=== PATIENT | female | born 1945 | race Caucasian/White ===

== ENCOUNTER 2017-07-04 07:21 | Outpatient (CLI) | payer OTHER | END 2017-07-04 07:29 | disposition home or self-care (01) | LOC: NUCLEAR 07:21 | DX: R07.89 Other chest pain (principal); E11.9 Type 2 diabetes mellitus without complications; I10 Essential (primary) hypertension; R94.31 Abnormal electrocardiogram [ECG] [EKG] | CPT/HCPCS: 78452; 93017; A9500; J0153 ==

== ENCOUNTER 2018-10-14 18:37 | Emergency (ER) | payer OTHER ==
[~2018-10-14] VITALS: Ht 172.7 cm; Wt 86.2 kg
[2018-10-14] MEDS ORDERED: FORTAMET500 MG (19:46)
[2018-10-14] MEDS ORDERED: SYNTHROID88 MCG (19:47)
[2018-10-14] MEDS ORDERED: PANTOPRAZOLE SO40 MG (19:47)
[2018-10-15] MEDS ORDERED: PYRIDIUM DS200 MG PO (01:33)
[2018-10-15] MEDS ORDERED: CEFUROXIME500 MG PO (01:33)
== END 2018-10-15 01:50 | disposition home or self-care (01) ==
LOC: ER 18:37
DX: E86.0 Dehydration (principal); N39.0 Urinary tract infection, site not specified; R50.9 Fever, unspecified

== ENCOUNTER 2018-10-16 10:33 | Inpatient (IN) | payer OTHER ==
[~2018-10-16] VITALS: Ht 172.7 cm; Wt 85.3 kg
[~2018-10-16 10:33] MED LIST: CEFUROXIME500 MG PO; FORTAMET500 MG; PANTOPRAZOLE SO40 MG; PYRIDIUM DS200 MG PO; SYNTHROID88 MCG
== END 2018-10-29 18:19 | disposition home or self-care (01) | DRG 305 ==
LOC: ER 10:33 → MEDJ 18:35 → ICU 10-19 19:42 → MEDJ 10-22 18:36
PROVIDERS: ADMIT Student in an Organized Health Care Education/Training Program
PROC: BT43ZZZ Ultrasonography of Bilateral Kidneys (ICD-10-PCS; 2018-10-16)
PROC: 02HV33Z Insertion of Infusion Device into Superior Vena Cava, Percutaneous Approach (ICD-10-PCS; 2018-10-19)
PROC: 06HM33Z Insertion of Infusion Device into Right Femoral Vein, Percutaneous Approach (ICD-10-PCS; principal; 2018-10-20)
PROC: 5A1D70Z Performance of Urinary Filtration, Intermittent, Less than 6 Hours Per Day (ICD-10-PCS; 2018-10-20)
PROC: B246ZZZ Ultrasonography of Right and Left Heart (ICD-10-PCS; 2018-10-20)
PROC: 30233R1 Transfusion of Nonautologous Platelets into Peripheral Vein, Percutaneous Approach (ICD-10-PCS; 2018-10-21)
PROC: 5A1D70Z Performance of Urinary Filtration, Intermittent, Less than 6 Hours Per Day (ICD-10-PCS; 2018-10-21)
PROC: 4A12X4Z Monitoring of Cardiac Electrical Activity, External Approach (ICD-10-PCS; 2018-10-22)
PROC: 5A1D70Z Performance of Urinary Filtration, Intermittent, Less than 6 Hours Per Day (ICD-10-PCS; 2018-10-23)
DX: I13.10 Hypertensive heart and chronic kidney disease without heart failure, with stage 1 through stage 4 chronic kidney disease, or unspecified chronic kidney disease (principal); N39.0 Urinary tract infection, site not specified; N17.8 Other acute kidney failure; G72.81 Critical illness myopathy; E87.2 Acidosis; E86.0 Dehydration; K52.89 Other specified noninfective gastroenteritis and colitis; E11.42 Type 2 diabetes mellitus with diabetic polyneuropathy; D69.49 Other primary thrombocytopenia; N18.9 Chronic kidney disease, unspecified; I48.91 Unspecified atrial fibrillation

== ENCOUNTER 2021-04-09 09:54 | Outpatient (CLI) | payer OTHER | END 2021-04-09 10:00 | disposition home or self-care (01) | LOC: RAD 09:54 | PROVIDERS: ATTEND Orthopaedic Surgery | DX: M17.12 Unilateral primary osteoarthritis, left knee (principal); M18.11 Unilateral primary osteoarthritis of first carpometacarpal joint, right hand; M18.12 Unilateral primary osteoarthritis of first carpometacarpal joint, left hand ==